=== PATIENT | male | born 1940 | race Caucasian/White ===

== ENCOUNTER 2019-06-24 06:58 | Day surgery (SDC) | payer BC ==
[2019-06-23 12:14] LABS: BASOPHILS # (AUTO) 0.1 X10'3 (0-0.2); BASOPHILS % (AUTO) 0.9 % (0-1); EOSINOPHILS # (AUTO) 0.5 X10'3 (0-0.9); EOSINOPHILS % (AUTO) 6.2 % (0-6); HEMATOCRIT 42.9 % (42.0-52.0); HEMOGLOBIN 14.4 g/dl (14.0-17.9); LYMPHOCYTES % (AUTO) 24.6 % (21-51); MEAN CORPUSCULAR HEMOGLOBIN 30.1 PG (27.0-31.0); MEAN CORPUSCULAR HGB CONC 33.6 g/dL (33.0-36.5); MEAN CORPUSCULAR VOLUME 89.6 FL (78-98); MEAN PLATELET VOLUME 7.9 FL (7.4-10.4); MONOCYTES # (AUTO) 0.7 X10'3 (0-0.9); MONOCYTES % (AUTO) 8.9 % (2-12); NEUTROPHILS # (AUTO) 4.8 X10'3 (1.8-7.7); NEUTROPHILS % (AUTO) 59.4 % (42-75); PLATELET COUNT 159 X10'3 (140-440); RED BLOOD COUNT 4.78 X10'6 (4.70-6.10); RED CELL DISTRIBUTION WIDTH 13.2 % (11.5-14.5); WHITE BLOOD COUNT 8.1 X10'3 (4.5-11.0)
[2019-06-23 12:20] LABS: ALBUMIN 3.9 G/DL (3.4-5.0); ANION GAP 7 (8-16); BLOOD UREA NITROGEN 13 MG/DL (7-18); BUN/CREATININE RATIO 10.8 (5.4-32.0); CALCIUM 8.8 MG/DL (8.5-10.1); CHLORIDE 108 MMOL/L (99-107); GLUCOSE 109 MG/DL (70-104); POTASSIUM 4.3 MMOL/L (3.5-5.1); SODIUM 142 MMOL/L (135-145); TOTAL CARBON DIOXIDE 27.5 MMOL/L (24-32); eGFR 58 ML/MIN
[~2019-06-24] VITALS: Ht 170.2 cm; Wt 82.8 kg
[2019-06-24] VITALS (15 sets, daily range): BP systolic 104–129; BP diastolic 60–78
[~2019-06-24 06:58] MED LIST: CALC-829 PO; CHOL400T14 PO; DABI150C PO; DRON400T6 PO; FERR325T32 PO; FURO40TA4 PO; MAGN400C PO; METF500T20 PO; METO-539 PO; MULT-1141 PO; OMEG1CAP54 PO; POTA20TA39 PO; ZET10T PO; ZOC40T PO
[2019-06-24] MEDS ORDERED: normal saline 1000ml 1,000 ML IV SCH (07:25)
[2019-06-24] MEDS ORDERED: atropine 0.1mg/ml 10ml syringe IV ONE (07:30)
[2019-06-24] MEDS ORDERED: LORazepam 0.5 MG tablet PO ONE (07:30)
[2019-06-24] MEDS ORDERED: morphine 10mg/ml inj. IV ONE (07:30)
[2019-06-24] MEDS ORDERED: MIDAZolam 5mg/ml 2ml vial IV ONE (07:30)
[2019-06-24] MEDS ORDERED: amiodarone in dextrose, iso-osm 150mg/100ml bag IV ONE (07:35)
[2019-06-24] MEDS ORDERED: diphenhydrAMINE 25mg capsule PO ONE (07:35)
[2019-06-24] MEDS ORDERED: CALC600T12 (07:43)
[2019-06-24] MEDS ORDERED: GLUC-221 (07:43)
[2019-06-24] MEDS ORDERED: UBID100C16 PO (07:43)
== END 2019-06-24 12:06 | disposition home or self-care (01) ==
LOC: SSTAY O 06:58
PROVIDERS: ATTEND Internal Medicine Cardiovascular Disease
DX: I48.1 Persistent atrial fibrillation (principal); I10 Essential (primary) hypertension; E78.5 Hyperlipidemia, unspecified; I25.10 Atherosclerotic heart disease of native coronary artery without angina pectoris; I48.0 Paroxysmal atrial fibrillation; Z95.0 Presence of cardiac pacemaker; Z95.1 Presence of aortocoronary bypass graft
CPT/HCPCS: 36415; 80048; 82948; 85025; 85610; 92960; 93005; J0282; J0461; J2250; J2270; J7030

== ENCOUNTER → 2020-05-07 | Outpatient (CLI) | payer BC ==
[~2020-05-07] MED LIST changes: -CALC-829 PO; +CALC600T12; +GLUC-221; +METF-900 PO; -METF500T20 PO; +UBID100C16 PO
== END | disposition home or self-care (01) ==
LOC: VAS 09:55
PROVIDERS: ATTEND Internal Medicine Cardiovascular Disease
DX: I65.23 Occlusion and stenosis of bilateral carotid arteries (principal)
CPT/HCPCS: 93880

== ENCOUNTER → 2020-05-20 | Outpatient (CLI) | payer BC ==
[2020-05-20] VITALS (21 sets, daily range): BP systolic 97–127; BP diastolic 64–77
== END | disposition home or self-care (01) ==
LOC: CARD DIAG 11:45
PROVIDERS: ATTEND Internal Medicine Cardiovascular Disease
DX: R42 Dizziness and giddiness (principal)
CPT/HCPCS: 93660

== ENCOUNTER 2021-07-28 07:10 | Outpatient (CLI) | payer BC ==
[~2021-07-28 07:10] MED LIST changes: -CALC600T12; +CALC600T35
== END 2021-07-28 23:59 | disposition home or self-care (01) ==
LOC: RT 07:10
PROVIDERS: ATTEND Internal Medicine Cardiovascular Disease
DX: R94.2 Abnormal results of pulmonary function studies (principal); I51.7 Cardiomegaly; M47.814 Spondylosis without myelopathy or radiculopathy, thoracic region; M19.012 Primary osteoarthritis, left shoulder; M19.011 Primary osteoarthritis, right shoulder; M40.294 Other kyphosis, thoracic region; Z79.899 Other long term (current) drug therapy
CPT/HCPCS: 71046; 94010; 94727; 94729